=== PATIENT | female | born 1985 | race Caucasian/White ===

== ENCOUNTER 2018-10-28 11:37 | Emergency (ER) | payer OTHER ==
--- NOTE | 2018-10-28 12:08 | ER Document Report ---
ED Medical Screen (RME) - General Chief Complaint: Abdominal Cramping Stated Complaint: LOW BACK PAIN,ABDOMINAL PAIN Time Seen by Provider: 10/28/18 12:02 Primary Care Provider: MAKSIM ROD DO [Primary Care Provider] - Follow up as needed Mode of Arrival: Ambulatory Information source: Patient Notes: Patient is a 33-year-old female, who presents to the ER approximately 12 weeks with 3 hours of low back pain radiating to the lower part of her abdomen on both sides, sharp in nature with some cramping. Patient admits to abnormal vaginal discharge, yellow-green, but no burning with urination. Patient is not concerned about STDs today. TRAVEL OUTSIDE OF THE [place] IN LAST 30 DAYS: No - Related Data Allergies/Adverse Reactions: ondansetron HCl [From Zofran (as hydrochloride)] Allergy (Severe, Verified 10/28/15 19:43) Anaphylaxis iodine [Iodine] Allergy (Mild, Verified 10/28/15 19:43) Generalized rash Past Medical History - General Information source: Patient Psychiatric Medical History: Reports: Hx Depression - Immunizations Hx Diphtheria, Pertussis, Tetanus Vaccination: No Review of Systems - Review of Systems Female Genitourinary: See HPI Physical Exam - Vital signs Vitals: Temp Pulse Resp BP Pulse Ox 97.9 F 96 20 126/67 H 100 10/28/18 11:42 10/28/18 11:42 10/28/18 11:42 10/28/18 11:42 10/28/18 11:42 - Notes Notes: PHYSICAL EXAMINATION: GENERAL: Well-appearing and in no acute distress. ABDOMEN: Soft, no tenderness. No guarding, no rebound BACK: no vertebral tenderness, normal ROM Course - Vital Signs Vital signs: Temp Pulse Resp BP Pulse Ox 97.9 F 96 20 126/67 H 100 10/28/18 11:42 10/28/18 11:42 10/28/18 11:42 10/28/18 11:42 10/28/18 11:42 Doctor's Discharge - Discharge Referrals: MAKSIM ROD DO [Primary Care Provider] - Follow up as needed
[2018-10-28 12:46] LABS: BACTERIA (WET MOUNT) 4+ BACTERIA SEEN; EPITHELIALS (WET MOUNT) 4+ EPITHELIALS SEEN; RBCS (WET MOUNT) FEW RBCS SEEN; T.VAGINALIS (WET MOUNT) NO TRICHOMONAS SEEN; WBCS (WET MOUNT) 1+ WBCS SEEN; YEAST (WET MOUNT) NO YEAST SEEN
[2018-10-28 12:59] LABS: APPEARANCE,URINE CLEAR; BILIRUBIN,URINE NEGATIVE (NEGATIVE); COLOR,URINE YELLOW; GLUCOSE, URINE NEGATIVE (NEGATIVE); KETONES,URINE NEGATIVE (NEGATIVE); LEUKOCYTE ESTERASE,URINE NEGATIVE (NEGATIVE); NITRITE,URINE NEGATIVE (NEGATIVE); PROTEIN,URINE NEGATIVE (NEGATIVE); URINE SPECIFIC GRAVITY 1.011; UROBILINOGEN,URINE NEGATIVE mg/dL (<2.0)
--- NOTE | 2018-10-28 13:07 | RADIOLOGY REPORT (SQ) ---
EXAM DESCRIPTION: U/S 1TRIMESTER/1GEST W/DOPPLER COMPLETED DATE/TIME: 10/28/2018 12:50 pm REASON FOR STUDY: low back pain radiating to bilateral abd, 12 weeks COMPARISON: None. TECHNIQUE: Transabdominal static and realtime grayscale images acquired of the pelvis. Additional se lected spectral and color Doppler images recorded. All images stored on PACs. bHCG: Not available. CLINICAL DATES: 9 weeks 1 day LIMITATIONS: None. FINDINGS: FETUS: Single Living intrauterine . ULTRASOUND EGA: 10 week 0 days. ULTRASOUND JARET: 05/26/2019 EFW: Not applicable less than 20 weeks. CRL: 3.1 cm. FHR: 163 beats per minute. SURVEY: Too early to assess. AMNIOTIC FLUID: Adequate amount. PLACENTA: Not yet developed due to early gestation. SUBCHORIONIC BLEED: No. SIZE OF BLEED: Not applicable. UTERUS: No masses. No anomalies. CERVICAL LENGTH: 3.1 cm. Closed. RIGHT ADNEXA: Normal ovary with normal vascular flow. No adnexal free fluid. No adnexal masses. LEFT ADNEXA: Normal ovary with normal vascular flow. No adnexal free fluid. No adnexal masses. FREE FLUID: None. OTHER: No other significant finding. IMPRESSION: LIVING INTRAUTERINE . EGA 10 WEEKS 0 DAYS. Trimester of : First - 0 to 13 weeks. TECHNICAL DOCUMENTATION: JOB ID: [id number] [employer]- All Rights Reserved rev Reading location - IP/workstation name: [email or web address]
--- NOTE | 2018-10-28 15:03 | ER Document Report ---
ED General - General Chief Complaint: Abdominal Cramping Stated Complaint: LOW BACK PAIN,ABDOMINAL PAIN Time Seen by Provider: 10/28/18 12:02 Primary Care Provider: MAKSIM ROD DO [Primary Care Provider] - Follow up as needed Mode of Arrival: Ambulatory TRAVEL OUTSIDE OF THE [place] IN LAST 30 DAYS: No - HPI Notes: Patient is a 33-year-old female, G4, P2, who presents to the emergency department for evaluation. She states that yesterday she had one episode of vaginal discharge that was discolored. She states that usually it is a white, she had one episode yesterday where it seemed like green to her. She has had some aching in her lower back as well. Occasionally she has pain that radiates down both sides of her flanks. She states that she was concerned about the possibility of UTI, so she presents to the ED for further evaluation. She denies any dysuria, hematuria. She is in a monogamous relationship with her of 11 years. She denies any vaginal bleeding. No fevers or chills. [facility] - Related Data Allergies/Adverse Reactions: ondansetron HCl [From Zofran (as hydrochloride)] Allergy (Severe, Verified 10/28/15 19:43) Anaphylaxis iodine [Iodine] Allergy (Mild, Verified 10/28/15 19:43) Generalized rash Past Medical History - General Information source: Patient - Social History Smoking Status: Never Smoker Chew tobacco use (# tins/day): No Frequency of alcohol use: None Drug Abuse: None Family History: None - patient states none. denies: Arthritis, CAD, CVA, DM, Hyperlipidemia, Hypertension, Malignancy, Thyroid Disfunction Patient has suicidal ideation: No Patient has homicidal ideation: No Renal/ Medical History: Denies: Hx Peritoneal Dialysis Psychiatric Medical History: Reports: Hx Depression - Immunizations Hx Diphtheria, Pertussis, Tetanus Vaccination: No Review of Systems - Review of Systems Constitutional: No symptoms reported EENT: No symptoms reported Cardiovascular: No symptoms reported Respiratory: No symptoms reported Gastrointestinal: No symptoms reported Genitourinary: No symptoms reported Female Genitourinary: See HPI Musculoskeletal: See HPI Skin: No symptoms reported Neurological/Psychological: No symptoms reported Physical Exam - Vital signs Vitals: Temp Pulse Resp BP Pulse Ox 97.9 F 96 20 126/67 H 100 10/28/18 11:42 10/28/18 11:42 10/28/18 11:42 10/28/18 11:42 10/28/18 11:42 - Notes Notes: Vital signs reviewed, please refer to chart. Head is normocephalic, atraumatic. Pupils equal round, reactive to light. Neck is supple without meningismus. Heart is regular rate and rhythm. Lungs are clear to auscultation bilaterally. Abdomen is soft, nontender, normoactive bowel sounds throughout. Extremities without cyanosis, clubbing. Posterior calves are nontender. Peripheral pulses are equal. Skin is warm and dry. Patient is awake, alert, neurological exam is nonfocal. Course - Re-evaluation Re-evalutation: 10/28/18 15:02 Patient presents emergency department for evaluation. She states she had one episode of discolored discharge, but it is gone back to normal. She has some lower back pain as well. She has no red flag symptoms for back pain. Her urine does not reveal any signs of infection. Given her , I did go ahead and sent this for culture. Otherwise her ultrasound is unremarkable. She did have a gonorrhea and chlamydia swab here which is found to be negative. She has no trichomonas. I will have her follow-up with OB, she is to return to the emergency department with worsening or new concerning symptoms of any sort. - Vital Signs Vital signs: Temp Pulse Resp BP Pulse Ox 97.9 F 96 20 126/67 H 100 10/28/18 11:42 10/28/18 11:42 10/28/18 11:42 10/28/18 11:42 10/28/18 11:42 - Laboratory Laboratory results interpreted by me: 10/28/18 12:21 Urine Blood SMALL H - Diagnostic Test Radiology reviewed: Reports reviewed Radiology results interpreted by me: 10/28/18 15:01 Obstetrics Ultrasound 10/28/18 12:06 IMPRESSION: LIVING INTRAUTERINE . EGA 10 WEEKS 0 DAYS. Trimester of : First - 0 to 13 weeks. Discharge - Discharge Clinical Impression: Lower back pain Qualifiers: Chronicity: acute Back pain laterality: bilateral Sciatica presence: without sciatica Qualified Code(s): M54.5 - Low back pain Qualifiers: Weeks of gestation: 10 weeks Qualified Code(s): Z3A.10 - 10 weeks gestation of Condition: Stable Disposition: HOME, SELF-CARE Instructions: Low Back Pain ([facility]) Additional Instructions: Moist heat to the lower back as needed. Follow-up with your OB next week. Return to the emergency department with worsening or new concerning symptoms. Referrals: MAKSIM ROD DO [Primary Care Provider] - Follow up as needed
[2018-10-28 15:29] VITALS: BP 99/60
== END 2018-10-28 15:29 | disposition home or self-care (01) ==
LOC: ER 11:37
DX: O99.89 Other specified diseases and conditions complicating pregnancy, childbirth and the puerperium (principal); M54.5 Low back pain; O26.891 Other specified pregnancy related conditions, first trimester; N89.8 Other specified noninflammatory disorders of vagina; R10.9 Unspecified abdominal pain; Z3A.10 10 weeks gestation of pregnancy; Z88.8 Allergy status to other drugs, medicaments and biological substances
CPT/HCPCS: 76801; 81001; 87210; 93976; 99284

== ENCOUNTER 2019-04-05 15:47 | Outpatient (CLI) | payer OTHER ==
[2019-04-05 16:55] LABS: APPEARANCE,URINE CLEAR; BILIRUBIN,URINE NEGATIVE (NEGATIVE); COLOR,URINE STRAW; GLUCOSE, URINE NEGATIVE (NEGATIVE); KETONES,URINE NEGATIVE (NEGATIVE); LEUKOCYTE ESTERASE,URINE NEGATIVE (NEGATIVE); NITRITE,URINE NEGATIVE (NEGATIVE); PROTEIN,URINE NEGATIVE (NEGATIVE); URINE SPECIFIC GRAVITY 1.002; UROBILINOGEN,URINE NEGATIVE mg/dL (<2.0)
[2019-04-05 16:59] LABS: URINE AMPHETAMINES SCREEN NEGATIVE; URINE BARBITURATES SCREEN NEGATIVE; URINE BENZODIAZEPINES SCREEN NEGATIVE; URINE COCAINE SCREEN NEGATIVE; URINE MARIJUANA (THC) SCREEN NEGATIVE; URINE METHADONE SCREEN NEGATIVE; URINE PHENCYCLIDINE SCREEN NEGATIVE
[2019-04-05 17:34] LABS: BACTERIA (WET MOUNT) 4+ BACTERIA SEEN; EPITHELIALS (WET MOUNT) 3+ EPITHELIALS SEEN; T.VAGINALIS (WET MOUNT) NO TRICHOMONAS SEEN; WBCS (WET MOUNT) 3+ WBCS SEEN; YEAST (WET MOUNT) YEAST SEEN
[2019-04-05 17:37] LABS: RBCS (WET MOUNT) FEW RBCS SEEN
--- NOTE | 2019-04-05 17:49 | Non Stress Test Report ---
Non Stress Test Datetime Report Generated by CPN: 04/05/2019 17:49 DEMOGRAPHIC EGA NST: 32.4 INDICATION Indication for Study (NST) Other: Vulvocandiasis MONITORING Monitor Explained: Monitor Explained; Test Explained; Patient Verbalized Understanding Time on Monitor: 04/05/2019 16:08 Time off Monitor: 04/05/2019 17:40 NST Duration: 92 NST INTERVENTIONS NST Interventions: PO Hydration Physician Notified NST: C. Pena, CNM BABY A: [id number] BABY A Movement : Present Contraction Frequency : Occasional FHR Baseline : 135 Accelerations : 15X15 Decelerations : None Variability : Moderate 6-25bpm NST Review: Meets Criteria for Reactive NST NST Review and Verified By : ARIELLE Bustos Results: Reactive NST REPORT Report Trigger: Send Report
== END 2019-04-05 17:46 | disposition home or self-care (01) ==
LOC: LC 15:47
PROVIDERS: ATTEND Advanced Practice Midwife
PROC: 4A1HXCZ Monitoring of Products of Conception, Cardiac Rate, External Approach (ICD-10-PCS; principal; 2019-04-05)
DX: O98.813 Other maternal infectious and parasitic diseases complicating pregnancy, third trimester (principal); B37.3 Candidiasis of vulva and vagina; Z3A.32 32 weeks gestation of pregnancy
CPT/HCPCS: 59025; 80307; 81001; 84112; 87210

== ENCOUNTER 2019-04-21 08:23 | Outpatient (CLI) | payer OTHER ==
[2019-04-21] MEDS ORDERED: ACETAMINOPHEN WITH CODEINE #3 TABLET ONE (09:06)
--- NOTE | 2019-04-21 09:27 | Non Stress Test Report ---
Non Stress Test Datetime Report Generated by CPN: 04/21/2019 09:27 DEMOGRAPHIC EGA NST: 34.6 INDICATION Indication for Study (NST) Other: labor check right sided groin pain MONITORING Monitor Explained: Monitor Explained; Test Explained; Patient Verbalized Understanding Time on Monitor: 04/21/2019 08:42 Time off Monitor: 04/21/2019 09:09 NST Duration: 27 NST INTERVENTIONS NST Interventions: None Physician Notified NST: K Be CNM BABY A: [id number] BABY A Movement : Present Accelerations : 15X15 Decelerations : None Variability : Moderate 6-25bpm NST Review: Meets Criteria for Reactive NST NST Review and Verified By : squinn NST Results: Reactive NST REPORT Report Trigger: Send Report
[2019-04-21 09:38] LABS: APPEARANCE,URINE SLIGHTLY-CLOUDY; BILIRUBIN,URINE NEGATIVE (NEGATIVE); COLOR,URINE STRAW; GLUCOSE, URINE NEGATIVE (NEGATIVE); KETONES,URINE NEGATIVE (NEGATIVE); LEUKOCYTE ESTERASE,URINE SMALL (NEGATIVE); NITRITE,URINE NEGATIVE (NEGATIVE); PROTEIN,URINE NEGATIVE (NEGATIVE); URINE SPECIFIC GRAVITY 1.002; UROBILINOGEN,URINE NEGATIVE mg/dL (<2.0)
[2019-04-21 09:54] LABS: URINE AMPHETAMINES SCREEN NEGATIVE; URINE BARBITURATES SCREEN NEGATIVE; URINE BENZODIAZEPINES SCREEN NEGATIVE; URINE COCAINE SCREEN NEGATIVE; URINE MARIJUANA (THC) SCREEN NEGATIVE; URINE METHADONE SCREEN NEGATIVE; URINE PHENCYCLIDINE SCREEN NEGATIVE
[2019-04-21] MEDS ORDERED: ACETAMINOPHEN WITH CODEINE #3 TABLET PO ONE (10:00)
== END 2019-04-21 09:45 | disposition home or self-care (01) ==
LOC: LC 08:23
PROVIDERS: ATTEND Obstetrics & Gynecology Gynecology
PROC: 4A1HXCZ Monitoring of Products of Conception, Cardiac Rate, External Approach (ICD-10-PCS; principal; 2019-04-21)
DX: O26.893 Other specified pregnancy related conditions, third trimester (principal); R10.2 Pelvic and perineal pain; Z3A.34 34 weeks gestation of pregnancy
CPT/HCPCS: 59025; 80307; 81001

== ENCOUNTER 2019-05-05 16:20 | Outpatient (CLI) | payer OTHER ==
[2019-05-05 16:50] LABS: APPEARANCE,URINE CLEAR; BILIRUBIN,URINE NEGATIVE (NEGATIVE); COLOR,URINE COLORLESS; GLUCOSE, URINE NEGATIVE (NEGATIVE); KETONES,URINE NEGATIVE (NEGATIVE); LEUKOCYTE ESTERASE,URINE NEGATIVE (NEGATIVE); NITRITE,URINE NEGATIVE (NEGATIVE); PROTEIN,URINE NEGATIVE (NEGATIVE); URINE SPECIFIC GRAVITY 1.001; UROBILINOGEN,URINE NEGATIVE mg/dL (<2.0)
[2019-05-05 17:07] LABS: URINE AMPHETAMINES SCREEN NEGATIVE; URINE BARBITURATES SCREEN NEGATIVE; URINE BENZODIAZEPINES SCREEN NEGATIVE; URINE COCAINE SCREEN NEGATIVE; URINE MARIJUANA (THC) SCREEN NEGATIVE; URINE METHADONE SCREEN NEGATIVE; URINE PHENCYCLIDINE SCREEN NEGATIVE
[2019-05-05] MEDS ORDERED: RINGERS SOLUTION,LACTATED 1,000 ML IV ONE (17:14)
--- NOTE | 2019-05-05 18:06 | RADIOLOGY REPORT (SQ) ---
EXAM DESCRIPTION: U/S OB LIMITED COMPLETED DATE/TIME: 05/05/2019 5:57 pm REASON FOR STUDY: fluid, presentation, placenta COMPARISON: None. TECHNIQUE: Limited transabdominal grayscale ultrasound for evaluation of specific requested obstetri meño parameters. LIMITATIONS: None. FINDINGS: CERVICAL LENGTH: 4 cm. Closed. JACKELINE: 4.6 cm. FHR: 144 beats per minute. PRESENTATION: Transverse. PLACENTA: Not assessed ANATOMY: Not assessed OTHER: No other significant findings. IMPRESSION: LIMITED OBSTETRICAL ULTRASOUND WITH MEASURED PARAMETERS DELINEATED ABOVE. THERE IS OLIG OHYDRAMNIOS. Trimester of : Third trimester - 28 weeks to delivery. TECHNICAL DOCUMENTATION: JOB ID: [id number] [employer]- All Rights Reserved Reading location - IP/workstation name: [email or web address]
[2019-05-05] MEDS ORDERED: TERBUTALINE SULFATE INJ/PF 1 MG/1 ML SDV SUBCUT ONE (18:44)
[2019-05-05] MEDS ORDERED: TERBUTALINE SULFATE INJ/PF 1 MG/1 ML SDV ONE (18:45)
[2019-05-05] MEDS ORDERED: RINGERS SOLUTION,LACTATED 1,000 ML IV PRN (21:33)
[2019-05-05] MEDS ORDERED: HYDROXYZINE PAMOATE 50 MG CAPSULE ONE (21:33)
[2019-05-05] MEDS ORDERED: HYDROXYZINE PAMOATE 50 MG CAPSULE PO ONE (21:34)
--- NOTE | 2019-05-06 02:18 | Non Stress Test Report ---
Non Stress Test Datetime Report Generated by CPN: 05/06/2019 02:18 DEMOGRAPHIC EGA NST: 36.6 INDICATION Indication for Study (NST) Other: LC URINE RESULTS Urine Protein, NST: Negative Urine Ketones - NST: Negative Urine Glucose - NST: Negative Urine Blood - NST: Negative MONITORING Monitor Explained: Monitor Explained; Test Explained; Patient Verbalized Understanding Time on Monitor: 05/05/2019 22:00 Time off Monitor: 05/05/2019 22:33 NST Duration: 33 NST INTERVENTIONS NST Interventions: PO Hydration; Reposition Patient Physician Notified NST: Solorio BABY A: [id number] BABY A Movement : Present Contraction Frequency : 1-7 FHR Baseline : 125 Accelerations : 15X15 Decelerations : None Variability : Moderate 6-25bpm NST Review: Meets Criteria for Reactive NST NST Review and Verified By : hope SOILMAN Results: Reactive NST REPORT Report Trigger: Send Report
== END 2019-05-05 22:52 | disposition home or self-care (01) ==
LOC: LC 16:20
PROVIDERS: ATTEND Student in an Organized Health Care Education/Training Program
PROC: 4A1HXCZ Monitoring of Products of Conception, Cardiac Rate, External Approach (ICD-10-PCS; principal; 2019-05-05)
DX: O41.03X0 Oligohydramnios, third trimester, not applicable or unspecified (principal); O47.1 False labor at or after 37 completed weeks of gestation; Z3A.36 36 weeks gestation of pregnancy
CPT/HCPCS: 59025; 81005; 80307; 84112; 76815; J3105

== ENCOUNTER 2019-05-12 16:15 | Outpatient (CLI) | payer OTHER ==
[2019-05-12 17:05] LABS: APPEARANCE,URINE CLEAR; BILIRUBIN,URINE NEGATIVE (NEGATIVE); COLOR,URINE STRAW; GLUCOSE, URINE NEGATIVE (NEGATIVE); KETONES,URINE 20 mg/dL (NEGATIVE); LEUKOCYTE ESTERASE,URINE NEGATIVE (NEGATIVE); NITRITE,URINE NEGATIVE (NEGATIVE); PROTEIN,URINE NEGATIVE (NEGATIVE); URINE SPECIFIC GRAVITY 1.009; UROBILINOGEN,URINE NEGATIVE mg/dL (<2.0)
[2019-05-12 17:22] LABS: URINE AMPHETAMINES SCREEN NEGATIVE; URINE BARBITURATES SCREEN NEGATIVE; URINE BENZODIAZEPINES SCREEN NEGATIVE; URINE COCAINE SCREEN NEGATIVE; URINE MARIJUANA (THC) SCREEN NEGATIVE; URINE METHADONE SCREEN NEGATIVE; URINE PHENCYCLIDINE SCREEN NEGATIVE
--- NOTE | 2019-05-12 18:11 | Non Stress Test Report ---
Non Stress Test Datetime Report Generated by CPN: 05/12/2019 18:11 DEMOGRAPHIC Test Number: 4 EGA NST: 37.6 INDICATION Indication for Study (NST) Other: LC from WHA to r/o ROM VITAL SIGNS Temperature - NST: 97.8 Pulse - NST: 101 RESP - NST: 15 NBPSYS NST: 130 NBPDIA NST: 75 MONITORING Monitor Explained: Monitor Explained; Test Explained; Patient Verbalized Understanding Time on Monitor: 05/12/2019 16:56 Time off Monitor: 05/12/2019 17:26 NST Duration: 30 NST INTERVENTIONS NST Interventions: PO Hydration Physician Notified NST: Dr. Mejia/ Debora Be CNM BABY A: [id number] BABY A Movement : Present Contraction Frequency : 2-7 FHR Baseline : 155 Accelerations : 15X15 Decelerations : Variable Variability : Moderate 6-25bpm NST Review: Meets Criteria for Reactive NST NST Review and Verified By : SAutry NST Results: Reactive NST COMMENTS NST Comments: Providers on unit reviewing FHT strip. NST REPORT Report Trigger: Send Report
== END 2019-05-12 17:29 | disposition home or self-care (01) ==
LOC: LC 16:15
PROVIDERS: ATTEND Obstetrics & Gynecology
PROC: 4A1HXCZ Monitoring of Products of Conception, Cardiac Rate, External Approach (ICD-10-PCS; principal; 2019-05-12)
DX: Z34.93 Encounter for supervision of normal pregnancy, unspecified, third trimester (principal)
CPT/HCPCS: 59025; 80307; 81005; 84112

== ENCOUNTER 2019-05-21 17:27 | Inpatient (IN) | payer OTHER ==
[2019-05-21] MEDS ORDERED: RINGERS SOLUTION,LACTATED 300 ML IV ONE (17:29)
[2019-05-21] MEDS ORDERED: DINOPROSTONE 10 MG VAGINAL INSERT.SR PV PRN (17:29)
[2019-05-21] MEDS ORDERED: OXYTOCIN/NORMAL SALINE 20 UNIT/1,000 ML RTUINJ IV PRN (17:29)
[2019-05-21] MEDS ORDERED: PENICILLIN G POTASSIUM 5,000,000 UNIT in DEXTROSE 5%-WATER 100 ML IV ONE (17:29)
[2019-05-21 18:27] LABS: APPEARANCE,URINE CLEAR; BILIRUBIN,URINE NEGATIVE (NEGATIVE); COLOR,URINE STRAW; GLUCOSE, URINE NEGATIVE (NEGATIVE); KETONES,URINE NEGATIVE (NEGATIVE); LEUKOCYTE ESTERASE,URINE NEGATIVE (NEGATIVE); NITRITE,URINE NEGATIVE (NEGATIVE); PROTEIN,URINE NEGATIVE (NEGATIVE); URINE SPECIFIC GRAVITY 1.002; UROBILINOGEN,URINE NEGATIVE mg/dL (<2.0)
[2019-05-21] MEDS ORDERED: DINOPROSTONE 10 MG VAGINAL INSERT.SR ONE (18:28)
[2019-05-21 18:43] LABS: URINE AMPHETAMINES SCREEN NEGATIVE; URINE BARBITURATES SCREEN NEGATIVE; URINE BENZODIAZEPINES SCREEN NEGATIVE; URINE COCAINE SCREEN NEGATIVE; URINE MARIJUANA (THC) SCREEN NEGATIVE; URINE METHADONE SCREEN NEGATIVE; URINE PHENCYCLIDINE SCREEN NEGATIVE
[2019-05-21] MEDS: RINGERS SOLUTION,LACTATED 1,000 ML IV PRN ×2 (18:45→19:51)
[2019-05-21 18:47] LABS: ABSOLUTE EOSINOPHILS # (AUTO) 0.1 10^3/uL (0.0-0.6); ABSOLUTE LYMPHOCYTES (AUTO) 1.6 10^3/uL (0.5-4.7); ABSOLUTE MONOCYTES (AUTO) 0.5 10^3/uL (0.1-1.4); ABSOLUTE NEUT (AUTO) 5.1 10^3/uL (1.7-8.2); BASOPHILS % (AUTO) 0.6 % (0-2); EOSINOPHILS % (AUTO) 1.4 % (0-6); HEMATOCRIT 30.3 % (36.0-47.0); HEMOGLOBIN 10.5 g/dL (12.0-15.5); LYMPHOCYTES % (AUTO) 21.9 % (13-45); MEAN CORPUSCULAR HGB CONC 34.6 g/dL (32.0-36.0); MEAN CORPUSCULAR VOLUME 84 fl (80-97); PLATELET COUNT 210 10^3/uL (150-450); RED CELL DISTRIBUTION WIDTH 14.2 % (11.5-14.0); SEGMENTED NEUTROPHILS % (AUTO) 69.1 % (42-78); TOTAL CELLS COUNTED % (AUTO) 100 %; WHITE BLOOD COUNT 7.4 10^3/uL (4.0-10.5)
[2019-05-21] MEDS ORDERED: MISOPROSTOL 0.2 MG TABLET ONE (18:55)
[2019-05-21] MEDS ORDERED: OXYTOCIN/NORMAL SALINE 20 UNIT/1,000 ML RTUINJ ONE (18:55)
[2019-05-21] MEDS ORDERED: OXYTOCIN 10 UNIT/ML VIAL ONE (18:55)
[2019-05-21] MEDS ORDERED: LIDOCAINE 1% INJ-PF (10 MG/ML) 30 ML SDV ONE (18:55)
--- NOTE | 2019-05-21 21:58 | RADIOLOGY REPORT (SQ) ---
EXAM DESCRIPTION: US LIMITED COMPLETED DATE/TME: 05/21/2019 00:00 CLINICAL HISTORY: 34 years, Female, presentation COMPARISON: Prior study from 05/05/2019 TECHNIQUE: Axial 2-D grayscale images of the pelvis were obtained. Doppler was utilized. LIMITATIONS: None. FINDINGS: Single live intrauterine is identified with measurements as follows: Cervix is closed, measuring 3 cm in length Biparietal diameter: 9.59 cm Head circumference: 33.9 cm Abdominal circumference: 35.18 cm Femoral length: 7.67 cm Estimated weight is 3690 g (8 lbs. 2 oz.) Estimated gestational age is 39 weeks and one day Estimated date of delivery is 05/27/2019 Amniotic fluid index is 5.3 cm with largest vertical pocket measuring 3.3 cm. heart rate is 141 bpm. Placenta is anterior, grade 3 presentation is vertex IMPRESSION: Single live intrauterine , as above described. presentation is vertex. Largest vertical pocket of amniotic fluid is 3.3 cm with amniotic fluid index of 5.3 cm. This is borderline low. copyright 2010 [employer]- All Rights Reserved
--- NOTE | 2019-05-22 06:39 | Admission Physical ---
Datetime Report Generated by CPN: 05/22/2019 06:39 CURRENT ADMISSION Chief Complaint: Scheduled Induction of Labor Indication for Induction: Other Indication for Induction- Other: previous precipitous deliveries Admit Impression : Term, Intrauterine Admit Plan: Admit to Unit; Initiate Labor Induction Protocol ALLERGIES Medication Allergies: Yes Medication Allergies: ondansetron HCl/SV/Anaphylaxis (05/21/2019); iodine/ND/Generalized [place] (05/21/2019) Latex: Latex Allergies OBSTETRICAL HISTORY EDC: 05/27/2019 00:00 : 4 Para: 2 Term: 2 : 0 SAB: 1 IAB: 0 Ectopic: 0 Livin Cesareans: 0 VBACs: 0 Multiple Births: 0 Gestational Diabetes: No Rh Sensitization: No Incompetent Cervix: No MICHAEL: No Infertility: No ART Treatment: No Uterine Anomaly: No IUGR: No Hx Previous C/S: No Macrosomia: No Hx Loss/Stillborn: No PIH: No Hx : No Placenta Previa/Abruption: No Depression/PP Depression: No PTL/PROM: No Post Hemorrhage: No Current Procedures: Ultrasound; NST Obstetrical History Comments: G1: 2008 SVE no complications G2: 2014 SAB G3: 2015 SVE precipitous delivery G4: current no complications transverse 05/05 SEE RECORDS Alcohol: No Marijuana : No Cocaine: No Other Illicit Drugs: No Cigarettes: Never Smoker. [id number] MEDICAL HISTORY Diabetes: No Blood Transfusion: No Pulmonary Disease (Asthma, TB): No Breast Disease: No Hypertension: No Youth Counselor Surgery: No Heart Disease: No Hosp/Surgery: No Autoimmune Disorder: No Anesthetic Complications: No Kidney Disease: No Abnormal Pap Smear: No Neuro/Epilepsy: No Psychiatric Disorders: No Other Medical Diseases: No Hepatitis/Liver Disease: No Significant Family History: No Varicosities/Phlebitis: No Trauma/Violence : No Thyroid Dysfunction: No INFECTIOUS HISTORY Gonorrhea: No Genital Herpes: No Chlamydia: No Tuberculosis: No Syphilis: No Hepatitis: No HIV/AIDS Exposure: No Rash or Viral Illness: No HPV: No PHYSICAL EXAM General: Normal HEENT: Normal Neurologic: Normal Thyroid: Normal Heart: Normal Lungs: Normal Breast: Normal Back: Normal Abdomen: Normal Genitourinary Exam: Normal Extremities: Normal DTRs: Normal Pelvic Type: Adequate Vital Signs: Reviewed; Within Normal Limits VAGINAL EXAM Dilatation: 1 Effacement: 50 Station: -2 MEMBRANES Pooling: Negative FETUS A EGA: 39.2 Monitoring: External US FHR- Baseline: 150 Variability: Minimal - Undetectable to <=5bpm Accelerations: 15X15 Decelerations: None FHR Category: Category I Estimated Weight (gm): 3500 Presentation: Vertex PLANS FOR LABOR AND DELIVERY Labor and Delivery: None Pain Management: Natural Feeding Preference: Breast Circumcision: N/A INFORMED CONSENT Signature: with User ID: Henry
[2019-05-22] MEDS ORDERED: PENICILLIN G-K 5 MILLION UNIT VIAL ONE ×4 (08:44→21:17)
[2019-05-22] MEDS: PENICILLIN G POTASSIUM 2,500,000 UNIT in DEXTROSE 5%-WATER 50 ML IV SCH ×3 (13:14→21:23)
[2019-05-22] MEDS ORDERED: FENTANYL/BUPIVACAINE/NS/PF 300 MCG/150 ML RTUINJ EPI ONE (19:19)
[2019-05-22] MEDS ORDERED: EPHEDRINE SULFATE INJ 50 MG/1 ML AMPULE ONE (19:19)
[2019-05-22] MEDS ORDERED: FENTANYL CITRATE INJ/PF 100 MCG/2 ML AMPUL ONE (19:20)
[2019-05-22] MEDS: RINGERS SOLUTION,LACTATED 1,000 ML IV PRN (20:55)
[2019-05-22] MEDS ORDERED: MEASLES,MUMPS&RUBELLA VACC/PF 0.5 ML VIAL SUBCUT PRN (22:43)
[2019-05-22] MEDS ORDERED: DIPHENHYDRAMINE HCL 25 MG CAPSULE PO PRN (22:43)
[2019-05-22] MEDS ORDERED: BENZOCAINE/MENTHOL AEROSOL SPRAY 56 ML TOP PRN (22:43)
[2019-05-22] MEDS ORDERED: PROMETHAZINE HCL INJ 25 MG/1 ML VIAL IV PRN (22:43)
[2019-05-22] MEDS ORDERED: NA PHOS,M-B/NA PHOS,DI-BA (ADULT) 133 ML ENEMA PR PRN (22:43)
[2019-05-22] MEDS ORDERED: PSEUDOEPHEDRINE HCL 30 MG TABLET PO PRN (22:43)
[2019-05-22] MEDS ORDERED: PROMETHAZINE HCL 25 MG SUPP.RECT PR PRN (22:43)
[2019-05-22] MEDS ORDERED: GLYCERIN/WITCH HAZEL LEAF 1 EACH MED..WIPE TP PRN (22:43)
[2019-05-22] MEDS ORDERED: ZOLPIDEM TARTRATE 5 MG TABLET PO PRN (22:43)
[2019-05-22] MEDS ORDERED: OXYTOCIN/NORMAL SALINE 20 UNIT/1,000 ML RTUINJ IV PRN (22:43)
[2019-05-22] MEDS ORDERED: DIBUCAINE 1% OINTMENT 28 GM TP PRN (22:43)
[2019-05-22] MEDS ORDERED: ACETAMINOPHEN WITH CODEINE #3 TABLET PO PRN ×2 (22:43)
[2019-05-22] MEDS ORDERED: PROMETHAZINE HCL 25 MG TABLET PO PRN (22:43)
[2019-05-22] MEDS ORDERED: DIPH/PERTUSS(ACELL)/TETANUS VAC/PF 0.5 ML SYR (>=10YO) IM PRN (22:43)
[2019-05-22] MEDS ORDERED: MAGNESIUM HYDROXIDE SUSP 30 ML UDCUP PO PRN (22:43)
[2019-05-22] MEDS ORDERED: ACETAMINOPHEN 325 MG TABLET PO PRN (22:43)
[2019-05-22] MEDS ORDERED: FAMOTIDINE 20 MG TABLET PO ONE (23:00)
--- NOTE | 2019-05-23 00:29 | Warning Signs in Babies ---
VOD Warning Signs Datetime Report Generated by [facility]: 05/23/2019 00:28 VOD#608 -Warning Signs in Babies: Viewed with Parent(s)/Family (05/23/2019 00:15:Daxa Schroeder RN)
--- NOTE | 2019-05-23 00:54 | Delivery Summary ---
Del Sum A-C Datetime Report Generated by CPN: 05/23/2019 00:54 DELIVERY PERSONNEL DELIVERY PERSONNEL: [id number] Delivery Doctor:: Delia Solorio MD Labor and Delivery Nurse:: Daxa Schroeder RNelectric milkers installer Nurse:: Vicenta Nogueira, RNC MATERNAL INFORMATION Delivery Anesthesia: Epidural Medications After Delivery: Pitocin Bolus-Please Comment Meds After Delivery Comment: Pitocin 20 units Delivery QBL: 100 Maternal Complications: None Provider Comments: VFI delivered in ALEX presentation. No nuchal cord. Shoulders and body delivered without difficulty. cord doubly clamped and cut. to maternal abdomen for NRP. Placenta delivered intact spontaneously. mother and baby stable upon provider leaving the room. FF at U. no perineal lacerations. Mother and baby stable upon provider leaving the room. LABOR SUMMARY EDC: 05/27/2019 00:00 No. Babies in Womb: 1 Attempted: No Labor Anesthesia: Epidural LABOR INFORMATION Reason for Induction: Other Reason for Induction- Other: elective due to history of precipitous delivery Onset of Labor: 05/22/2019 13:45 Complete Dilatation: 05/22/2019 22:24 Cervical Ripening Agents: Cervidil Oxytocin: Induction Group B Beta Strep: positive Antibiotics # of Doses: 4 Antibiotics Time of Last Dose: 21:23 Name of Antibiotic Given: Penicillin Steroids Given: None Reason Steroids Not Administered: Not Applicable MEMBRANES Membranes Rupture Method: Artificial Rupture of Membranes: 05/22/2019 15:52 Length of Rupture (hr): 6.65 Amniotic Fluid Color: Clear Amniotic Fluid Amount: Scant Amniotic Fluid Odor: None STAGES OF LABOR Stage 1 hr: 8 Stage 1 min: 39 Stage 2 hr: 0 Stage 2 min: 7 Stage 3 hr: 0 Stage 3 min: 4 Total Time in Labor hr: 8 Total Time in Labor min: 50 VAGINAL DELIVERY Episiotomy: None Laceration #1: None Laceration Extension #1: N/A Laceration Repair: Not Applicable Sponge Count Correct: Yes Sharps Count Correct: Yes CSECTION DELIVERY Primary Indication: N/A Secondary Indication: N/A CSection Incidence: N/A Labor: N/A Elective: N/A CSection Incision: N/A BABY A INFORMATION Delivery Date/Time: 05/22/2019 22:31 Method of Delivery: Vaginal Born in Route : No : N/A Forceps: N/A Vacuum Extraction: N/A Shoulder Dystocia : No PRESENTATION/POSITION BABY A Presentation: Cephalic Cephalic Presentation: Vertex Vertex Position: Right Occipital Anterior Breech Presentation: N/A PLACENTA INFORMATION BABY A Placenta Delivery Time : 05/22/2019 22:35 Placenta Method of Delivery: Spontaneous Placenta Status: Delivered SCORES BABY A Heart Rate 1 min: >100 bpm Resp Effort 1 min: Good Cry Reflex Irritability 1 min: Cough or Sneeze or Pulls Away Muscle Tone 1 min: Active Motion Color 1 min: Body Bladen, Extremities Blue Resuscitation Effort 1 min: Tactile Stimulation SCORE 1 MIN: 9 Heart Rate 5 min: >100 bpm Resp Effort 5 min: Good Cry Reflex Irritability 5 min: Cough or Sneeze or Pulls Away Muscle Tone 5 min: Active Motion Color 5 min: Body Bladen, Extremities Blue Resuscitation Effort 5 min: Tactile Stimulation SCORE 5 MIN: 9 INFANT INFORMATION BABY A Gestational Age at Delivery: 39.2 Gestational Status: Full Term- 39- 40.6 Weeks Outcome : Liveborn Condition : Stable Infant Sex: Female IDENTIFICATION BABY A Verification Date/Time: 05/22/2019 22:43 ID Band Number: [id number] Mother's Name Verified: Yes RN Verifying : M Schroeder RN/D Bellavance RN WEIGHT/LENGTH BABY A Birthweight (gm): 3345 Infant Weight (lb): 7 Weight (oz): 6 Length (in): 19.00 Length (cm): 48.26 CORD INFORMATION BABY A No. Cord Vessels: 3 Nuchal Cord : N/A Cord Blood Taken: Yes-For Eval (Mom's Blood Type - or O+) Suction: None ASSESSMENT BABY A Infant Complications: None Physical Findings at Delivery: Within Normal Limits Infant Respirations: Appears Normal Skin to Skin: Yes Sales Operations Consultant/ALS Called : No Infant Care By: D. Bellavance, RN Transferred To: Remains with Mother BABY B INFORMATION : N/A SIGNATURES Signature: with User ID: [email or web address]
[2019-05-23] MEDS: IBUPROFEN 800 MG TABLET PO SCH ×3 (05:43→22:30)
[2019-05-23 06:52] LABS: HEMATOCRIT 30.7 % (36.0-47.0); HEMOGLOBIN 10.6 g/dL (12.0-15.5); MEAN CORPUSCULAR HEMOGLOBIN 28.8 pg (27.0-33.4); MEAN CORPUSCULAR HGB CONC 34.4 g/dL (32.0-36.0); MEAN CORPUSCULAR VOLUME 84 fl (80-97); PLATELET COUNT 197 10^3/uL (150-450); RED BLOOD COUNT 3.67 10^6/uL (3.72-5.28); RED CELL DISTRIBUTION WIDTH 14.2 % (11.5-14.0); WHITE BLOOD COUNT 9.7 10^3/uL (4.0-10.5)
[2019-05-23] MEDS: FERROUS SULFATE 325 MG TABLET PO SCH ×2 (09:39→17:11)
[2019-05-23] MEDS: FAMOTIDINE 20 MG TABLET PO SCH ×2 (09:40→22:30)
[2019-05-23] MEDS: SENNOSIDES/DOCUSATE 8.6-50 MG 1 EACH TABLET PO SCH (09:40)
[2019-05-23] MEDS: DOCUSATE SODIUM 100 MG CAPSULE PO SCH ×2 (09:40→17:11)
[2019-05-23] MEDS: PRENATAL VITAMIN W DHA CAPSULE PO SCH (09:40)
--- NOTE | 2019-05-23 13:45 | PDOC PROGRESS REPORT ---
Subjective-OB Progress Note for:: 05/23/19 Subjective: 34yo G4 now P3 s/p ppd1. Pt. ambulating, voiding and passing gas without difficulty. Reports pain well controlled with medication. No concerns today Physical Exam (OB) Vital Signs: Temp Pulse Resp BP Pulse Ox 98.6 F 95 16 98/57 L 100 05/23/19 08:01 05/23/19 08:01 05/23/19 08:01 05/23/19 08:01 05/23/19 08:01 Intake & Output 05/22/19 05/23/19 05/24/19 06:59 06:59 06:59 Intake Total 1138 480 Balance 1138 480 Weight 84.368 kg - General General Appearance: Appears well In distress: None - PIH/Pre-Eclampsia Headache: Absent Epigastric Pain: No Visual Changes: No - Episiotomy/Laceration Site Condition: N/A - Lochia Lochia Amount: Small 10-25 ml Lochia Color: Rubra/Red - Abdomen Description: Soft, Round Fundal Description: Firm, Midline Fundal Height: u/u - u/2 - Respiratory Respiratory Status: No respiratory distress - Extremities Upper extremity: Normal inspection Lower extremities: Normal inspection - Neurological Cognition: Normal Orientation: AAOx4 - Psychological Associated symptoms: Normal affect, Normal mood Objective-Diagnostic Laboratory: 05/23/19 06:43 05/23/19 06:43 WBC 9.7 RBC 3.67 L Hgb 10.6 L Hct 30.7 L MCV 84 MCH 28.8 MCHC 34.4 RDW 14.2 H Plt Count 197 Assessment and Plan(PN) - Assessment and Plan (1) Anemia complicating , third trimester Is this a current diagnosis for this admission?: Yes Plan: increase dietary iron and FeSO4 BID (2) Group B streptococcal infection during Is this a current diagnosis for this admission?: Yes Plan: delivered (3) Vaginal delivery Is this a current diagnosis for this admission?: Yes Plan: Routine pp care (4) Encounter for induction of labor Is this a current diagnosis for this admission?: Yes Plan: delivered - Time Spent with Patient Time with patient: Less than 15 minutes Medications reviewed and adjusted accordingly: Yes - Disposition Anticipated Discharge: Home Within: within 24 hours
[2019-05-24] MEDS: IBUPROFEN 800 MG TABLET PO SCH (05:18)
[2019-05-24 09:20] VITALS: BP 107/69
--- NOTE | 2019-05-24 09:29 | PDOC PROGRESS REPORT ---
Subjective-OB Progress Note for:: 05/24/19 Subjective: Doing well, no c/o, , voiding, scant lochia, ready to go home Physical Exam (OB) Vital Signs: Temp Pulse Resp BP Pulse Ox 98.1 F 77 18 107/69 99 05/24/19 07:36 05/24/19 07:36 05/24/19 07:36 05/24/19 07:36 05/24/19 07:36 Intake & Output 05/23/19 05/24/19 05/25/19 06:59 06:59 06:59 Intake Total 1979 Balance 1979 - PIH/Pre-Eclampsia Headache: Absent Epigastric Pain: No Visual Changes: No - Lochia Lochia Amount: Small 10-25 ml Lochia Color: Rubra/Red - Abdomen Description: Soft Hernia Present: No Fundal Description: Firm, Midline Fundal Height: u/u - u/2 Objective-Diagnostic Laboratory: 05/23/19 06:43 Assessment and Plan(PN) - Assessment and Plan (1) Rh negative status during Qualifiers: Trimester: first trimester Qualified Code(s): O26.891 - Other specified related conditions, first trimester; Z67.91 - Unspecified blood type, Rh negative Is this a current diagnosis for this admission?: Yes (2) Anemia complicating , third trimester Is this a current diagnosis for this admission?: Yes (3) Encounter for induction of labor Is this a current diagnosis for this admission?: Yes (4) Group B streptococcal infection during Is this a current diagnosis for this admission?: Yes (5) Vaginal delivery Is this a current diagnosis for this admission?: Yes - Time Spent with Patient Time with patient: Less than 15 minutes Medications reviewed and adjusted accordingly: Yes - Disposition Anticipated Discharge: Home Within: within 24 hours
--- NOTE | 2019-05-24 09:34 | PDOC DISCHARGE SUMMARY ---
Impression - Admit/DC Date/PCP Admission Date/Primary Care Provider: 05/21/19 17:27 YONATHAN FINNEY MD Discharge Date: 05/24/19 - Discharge Diagnosis (1) Rh negative status during Is this a current diagnosis for this admission?: Yes (2) Anemia complicating , third trimester Is this a current diagnosis for this admission?: Yes (3) Encounter for induction of labor Is this a current diagnosis for this admission?: Yes (4) Group B streptococcal infection during Is this a current diagnosis for this admission?: Yes (5) Vaginal delivery Is this a current diagnosis for this admission?: Yes - Additional Information Resuscitation Status: Full Code Discharge Diet: As Tolerated, Regular Discharge Activity: Activity As Tolerated, No Lifting Over 10 Pounds, No Lifting/Push/Pulling, Pelvic Rest Referrals: YONATHAN FINNEY MD [Primary Care Provider] - (wha 4 weeks) Home Medications: Pnv No.95/Ferrous Fum/Folic AC [ Vitamins Tablet] 1 each PO DAILY 03/11/15 HPI Gestational Age: 39.2 Reason(s) for Admission: Induction of Labor Admission Note: Hx of fast labors Procedures: NST, Ultrasound Intrapartum Procedure(s): Spontaneous Vaginal Delivery - girl, apgars 9/9, wt= 7-6 Hospital Course Hospital Course: routine Results Laboratory Results: WBC 9.7 10^3/uL (4.0-10.5) 05/23/19 06:43 RBC 3.67 10^6/uL (3.72-5.28) L 05/23/19 06:43 Hgb 10.6 g/dL (12.0-15.5) L 05/23/19 06:43 Hct 30.7 % (36.0-47.0) L 05/23/19 06:43 MCV 84 fl (80-97) 05/23/19 06:43 MCH 28.8 pg (27.0-33.4) 05/23/19 06:43 MCHC 34.4 g/dL (32.0-36.0) 05/23/19 06:43 RDW 14.2 % (11.5-14.0) H 05/23/19 06:43 Plt Count 197 10^3/uL (150-450) 05/23/19 06:43 Lymph % (Auto) 21.9 % (13-45) 05/21/19 18:30 [place] % (Auto) 7.0 % (3-13) 05/21/19 18:30 Eos % (Auto) 1.4 % (0-6) 05/21/19 18:30 Baso % (Auto) 0.6 % (0-2) 05/21/19 18:30 Absolute Neuts (auto) 5.1 10^3/uL (1.7-8.2) 05/21/19 18:30 Absolute Lymphs (auto) 1.6 10^3/uL (0.5-4.7) 05/21/19 18:30 Absolute Monos (auto) 0.5 10^3/uL (0.1-1.4) 05/21/19 18:30 Absolute Eos (auto) 0.1 10^3/uL (0.0-0.6) 05/21/19 18:30 Absolute Basos (auto) 0.0 10^3/uL (0.0-0.2) 05/21/19 18:30 Seg Neutrophils % 69.1 % (42-78) 05/21/19 18:30 Urine Color STRAW 05/21/19 17:34 Urine Appearance CLEAR 05/21/19 17:34 Urine pH 7.0 (5.0-9.0) 05/21/19 17:34 Ur Specific [place] 1.002 05/21/19 17:34 Urine Protein NEGATIVE mg/dL (NEGATIVE) 05/21/19 17:34 Urine Glucose (UA) NEGATIVE mg/dL (NEGATIVE) 05/21/19 17:34 Urine Ketones NEGATIVE mg/dL (NEGATIVE) 05/21/19 17:34 Urine Blood SMALL (NEGATIVE) H 05/21/19 17:34 Urine Nitrite NEGATIVE (NEGATIVE) 05/21/19 17:34 Urine Bilirubin NEGATIVE (NEGATIVE) 05/21/19 17:34 Urine Urobilinogen NEGATIVE mg/dL (<2.0) 05/21/19 17:34 Ur Leukocyte Esterase NEGATIVE (NEGATIVE) 05/21/19 17:34 Urine Ascorbic Acid NEGATIVE (NEGATIVE) 05/21/19 17:34 Urine Opiates Screen NEGATIVE 05/21/19 17:34 Urine Methadone Screen NEGATIVE 05/21/19 17:34 Ur Barbiturates Screen NEGATIVE 05/21/19 17:34 Ur Phencyclidine Scrn NEGATIVE 05/21/19 17:34 Ur Amphetamines Screen NEGATIVE 05/21/19 17:34 U Benzodiazepines Scrn NEGATIVE 05/21/19 17:34 Urine Cocaine Screen NEGATIVE 05/21/19 17:34 U Marijuana (THC) Screen NEGATIVE 05/21/19 17:34 RPR NONREACTIVE (NONREACTIVE) 05/21/19 18:30 Blood Type A NEGATIVE 05/21/19 18:30 Antibody Screen NEGATIVE 05/21/19 18:30 Impressions: Obstetrics Ultrasound 05/21/19 00:00 IMPRESSION: Single live intrauterine , as above described. presentation is vertex. Largest vertical pocket of amniotic fluid is 3.3 cm with amniotic fluid index of 5.3 cm. This is borderline low. copyright 2011 [employer]- All Rights Reserved Plan Health Concerns: RH neg, rhogam if baby + Plan of Treatment: routine Goals: no complications Time Spent: Less than 30 Minutes
[2019-05-24] MEDS: PRENATAL VITAMIN W DHA CAPSULE PO SCH (10:11)
[2019-05-24] MEDS: FAMOTIDINE 20 MG TABLET PO SCH (10:11)
[2019-05-24] MEDS: FERROUS SULFATE 325 MG TABLET PO SCH (10:11)
[2019-05-24] MEDS: DOCUSATE SODIUM 100 MG CAPSULE PO SCH (10:11)
[2019-05-24] MEDS: SENNOSIDES/DOCUSATE 8.6-50 MG 1 EACH TABLET PO SCH (10:11)
== END 2019-05-24 14:33 | disposition home or self-care (01) | DRG 807 ==
LOC: LR 17:27 → 2S 05-23 00:39
PROVIDERS: ADMIT Obstetrics & Gynecology; ATTEND Obstetrics & Gynecology
PROC: 4A1HXCZ Monitoring of Products of Conception, Cardiac Rate, External Approach (ICD-10-PCS; 2019-05-21)
PROC: 10907ZC Drainage of Amniotic Fluid, Therapeutic from Products of Conception, Via Natural or Artificial Opening (ICD-10-PCS; 2019-05-22)
PROC: 3E033VJ Introduction of Other Hormone into Peripheral Vein, Percutaneous Approach (ICD-10-PCS; 2019-05-22)
PROC: 10E0XZZ Delivery of Products of Conception, External Approach (ICD-10-PCS; principal; 2019-05-23)
DX: O99.824 Streptococcus B carrier state complicating childbirth (principal); Z37.0 Single live birth; O99.02 Anemia complicating childbirth; D64.9 Anemia, unspecified; O26.893 Other specified pregnancy related conditions, third trimester; Z67.91 Unspecified blood type, Rh negative; Z88.8 Allergy status to other drugs, medicaments and biological substances; Z91.040 Latex allergy status; Z3A.39 39 weeks gestation of pregnancy
CPT/HCPCS: 36415; 76815; 80307; 81005; 85025; 85027; 86592; 86850; 86900; 86901; 94760; J2540; J2590; J3010; J3490; J7060